=== PATIENT | male | born 1980 | race Caucasian/White ===

== ENCOUNTER 2017-10-12 20:13 | Emergency (ER) | payer SELFPAY ==
[2017-10-12] MEDS ORDERED: DECADRON ONE (23:44)
[2017-10-12] MEDS ORDERED: PERCOCET 5/325 PO ONE (23:44)
[2017-10-12] MEDS ORDERED: DECADRON IM ONE (23:45)
--- NOTE | 2017-10-13 00:55 | XRay Report ---
FINAL REPORT EXAM: XR SPINE LUMBOSACRAL 2-3V HISTORY: pain, leg weakness TECHNIQUE: Three views of the lumbar spine were submitted. FINDINGS: There is a dextroscoliosis of the lumbar spine. The disc heights and alignment appear normal. The SI joints appear normal. The soft tissues are well maintained. IMPRESSION: Dextroscoliosis. Otherwise unremarkable exam.
[2017-10-13 01:02] LABS: Bilirubin,Urine NEG (Negative); Blood,Urine NEG (Negative); Color,Urine Yellow (Yellow); Protein,Urine <15 mg/dL mg/dL (Negative)
--- NOTE | 2017-10-13 01:43 | Emergency Department Report ---
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 states low back pain 1 week ago pt denies fall injury or trauma history of low back pain as far back as he can remember pain treated by Tylenol or Tylenol not working today patient denies dysuria no hematuria no fever no chills no nausea vomiting no other medical conditions there is no numbness no tingling or weakness no loss or decrease in bowel or bladder function pain does radiate into bilat lower extremities pain is exacerbated by prolonge sitting standing stair climbing bending and twisting Complaint: back pain Onset/Timin -: week(s) Similar Symptoms Previously: Yes Place: home Radiation: left leg, right leg Severity: moderate Severity scale (0 -10): 5 Quality: sharp, aching Consistency: intermittent Improves With: other (rest) Worsens With: other (prolonged sitting standing weight bearing stair climbing ) Context: other (hx of low back pain chronic ) Associated Symptoms: denies: confusion, weakness, chest pain, numbness, difficulty walking, cough, difficulty urinating, diaphoresis, incontinence, fever/chills, constipation, headaches, abdominal pain, loss of appetite, malaise , nausea/vomiting, rash, seizure, shortness of breath, syncope - Related Data Previous Rx's Medication Instructions Recorded Last Taken Type Acetaminophen/Codeine [Tylenol 1 tab PO Q6H PRN 2 Days #8 tab 10/13/17 Unknown Rx /Codeine # 3 tab] Cyclobenzaprine [Flexeril] 10 mg PO TID PRN #30 tablet 10/13/17 Unknown Rx Menthol/Camphor [[place] Coleman 1 applicatio TP TID PRN #1 tube 10/13/17 Unknown Rx Ointment] Naproxen 500 mg PO BID #30 tablet 10/13/17 Unknown Rx Allergies Allergy/AdvReac Type Severity Reaction Status Date / Time No Known Allergies Allergy Verified 10/12/17 21:55 ED Review of Systems ROS: Stated complaint: BACK PAIN Other details as noted in HPI Constitutional: denies: chills, fever Eyes: denies: eye pain, eye discharge, vision change ENT: denies: ear pain, throat pain Respiratory: denies: cough, shortness of breath, wheezing Cardiovascular: denies: chest pain, palpitations Endocrine: no symptoms reported Genitourinary: denies: urgency, dysuria Musculoskeletal: back pain, arthralgia, myalgia. denies: joint swelling, other Skin: denies: rash, lesions Neurological: denies: headache, weakness, paresthesias Psychiatric: denies: anxiety, depression Hematological/Lymphatic: denies: easy bleeding, easy bruising ED Past Medical Hx - Past Medical History Previous Medical History?: No - Surgical History Past Surgical History?: No - Social History Smoking Status: Never Smoker Substance Use Type: Alcohol - Medications Home Medications: Home Medications Medication Instructions Recorded Confirmed Last Taken Type Acetaminophen/Codeine [Tylenol 1 tab PO Q6H PRN 2 Days #8 tab 10/13/17 Unknown Rx /Codeine # 3 tab] Cyclobenzaprine [Flexeril] 10 mg PO TID PRN #30 tablet 10/13/17 Unknown Rx Menthol/Camphor [[place] 1 applicatio TP TID PRN #1 tube 10/13/17 Unknown Rx Ointment] Naproxen 500 mg PO BID #30 tablet 10/13/17 Unknown Rx ED Physical Exam - General Limitations: No Limitations General appearance: alert, in no apparent distress - Head Head exam: Present: atraumatic, normocephalic - Eye Eye exam: Present: normal appearance - ENT ENT exam: Present: mucous membranes moist - Neck Neck exam: Present: normal inspection - Respiratory Respiratory exam: Present: normal lung sounds bilaterally. Absent: respiratory distress - Cardiovascular Cardiovascular Exam: Present: regular rate, normal rhythm. Absent: systolic murmur, diastolic murmur, rubs, gallop - GI/Abdominal GI/Abdominal exam: Present: soft, normal bowel sounds - Rectal Rectal exam: Present: deferred - Extremities Exam Extremities exam: Present: normal inspection - Back Exam Back exam: Present: full ROM, tenderness (lumbar paraspinus muscle pain rom intact neg straight leg bilat ), muscle spasm, paraspinal tenderness. Absent: CVA tenderness (R), CVA tenderness (L), vertebral tenderness, rash noted - Expanded Back Exam Expanded Back exam: Absent: saddle anesthesia Back exam: Negative Straight Leg Raising: Right, Left - Neurological Exam Neurological exam: Present: alert, oriented X3, CN II-XII intact, normal gait, reflexes normal - Expanded Neurological Exam Expanded Patient oriented to: Present: person, place, time Speech: Present: fluid speech Cranial nerves: EOM's Intact: Normal, Gag Reflex: Normal, Tongue Deviation: Normal, Nystagmus: Normal, Facial Sensation: Normal, Facial Palsy with Forehead Movement: Normal, Facial Palsy without Forehead Movement: Normal Cerebellar function: Finger to Nose: Normal, Heel to Giles: Normal, Romberg: Normal Upper motor neuron: [place] Neglect: Normal, Pronator Drift: Normal, Babinski Sign : Normal, Sensory Extinction: Normal Sensory exam: Upper Extremity Light Touch: Normal, Upper Extremity Pin Prick: Normal, Upper Extremity Temperature: Normal, UE 2 Point Discrimination: Normal, Lower Extremity Light Touch: Normal, Lower Extremity Pin Prick: Normal, Lower Extremity Temperature: Normal, LE 2 Point Discrimination: Normal Motor strength exam: RUE: 5, LUE: 5, RLE: 5, LLE: 5 DTR: bicep (R): 2+, bicep (L): 2+, tricep (R): 2+, tricep (L): 2+, knee (R): 2+ , knee (L): 2+, ankle (R): 2+, ankle (L): 2+ Best Eye Response (Hazen): (4) open spontaneously Best Motor Response (Hazen): (6) obeys commands Best Verbal Response ([place]): (5) oriented Hazen Total: 15 - Psychiatric Psychiatric exam: Present: normal affect, normal mood - Skin Skin exam: Present: warm, dry, intact, normal color. Absent: rash ED Course Vital Signs 10/12/17 20:53 Temperature 98.4 F Pulse Rate 77 Respiratory 18 Rate Blood Pressure 112/65 O2 Sat by Pulse 98 Oximetry ED Medical Decision Making - Radiology Data Radiology results: report reviewed, image reviewed no fracture no soft tissue injury , noted dextroscoliosis, - Medical Decision Making X-ray demonstrates dextroscoliosis pain is improved with Toradol given in ED UA normal plan DC to home with NSAIDs muscle relaxants moist heat therapy follow with orthopedics in 2-3 days . Patient and family members were verbalized understanding of same patient will followed also in 2-3 days. pt is currently a/ o x 3 ambulatory gait steady. Critical care attestation.: If time is entered above; I have spent that time in minutes in the direct care of this critically ill patient, excluding procedure time. ED Disposition Clinical Impression: Dextroscoliosis Disposition: DC-01 TO HOME OR SELFCARE Is pt being admited?: No Does the pt Need Aspirin: No Condition: Good Instructions: Low Back Strain (ED), Core Strengthening Exercises (GEN) Prescriptions: Acetaminophen/Codeine [Tylenol /Codeine # 3 tab] 1 tab PO Q6H PRN 2 Days #8 tab PRN Reason: severe pain Cyclobenzaprine [Flexeril] 10 mg PO TID PRN #30 tablet PRN Reason: Muscle Spasm Menthol/Camphor [[place] Ointment] 1 applicatio TP TID PRN #1 tube PRN Reason: Pain , Severe (7-10) Naproxen 500 mg PO BID #30 tablet Referrals: [facility] [Outside] - 3-5 Days Forms: Work/School Release Form(ED) Time of Disposition: 01:55
[2017-10-13 02:15] VITALS: BP 119/78
== END 2017-10-13 02:26 | disposition home or self-care (01) ==
LOC: ED 20:13
DX: M41.86 Other forms of scoliosis, lumbar region (principal)
CPT/HCPCS: 72100; 81001; 90471; 99284; J1100